=== PATIENT | female | born 1955 | race Caucasian/White ===

== ENCOUNTER → 2018-06-28 17:42 | Outpatient (CLI) | payer BC | END | disposition home or self-care (01) | LOC: D.MAMMO 09:30 | DX: N64.4 Mastodynia (principal) ==

== ENCOUNTER → 2018-07-23 08:07 | Outpatient (CLI) | payer BC | END | disposition home or self-care (01) | LOC: D.HCCARDIO 08:07 | DX: I20.9 Angina pectoris, unspecified (principal) ==

== ENCOUNTER 2018-08-06 11:15 | Inpatient (IN) | payer BC ==
[~2018-08-06] VITALS: Ht 149.9 cm; Wt 60.5 kg
--- NOTE | ~2018-08-06 | HEMODYNAMI ---
PATIENT:ANDERSON SÁNCHEZ MEDICAL RECORD: [id number] : 57 LOCATION:[facility] ADMISSION DATE: 08/06/18 Generatedon:08/06/201813:53 Patient name: ANDERSON SÁNCHEZ Patient #: [id number] SSN: : 1955 Date of study: 08/06/2018 Page: Of Hemodynamic Procedure Report Patient Data Patient Demographics Procedure consent was obtained First Name: ANDERSON Gender: Female Last Name: PRINCESS : 1955 [facility] Initial: NIKHIL Age: 62 year(s) Patient #: [id number] Race: Unknown Additional ID: [id number] Contact details Address: [address] [place] [address] State: [place] City: [place] Zip code: [address] Past Medical History Allergies: No known allergies Admission Admission Data Admission Date: 08/06/2018 Admission Time: 11:15 Height (in.): 61 BSA: 1.57 (m2) Height (cm.): 154.94 BMI: 24.56 (kg/m2) Weight (lbs.): 130 Weight (kg.): 58.97 Lab Results Lab Result Date: 08/06/2018 Lab Result Time: 0:00 Biochemistry Name Units Result Min Max BUN mg/dl 11 --(-*--)-- 7 18 Creatinine mg/dl 0.8 --(-*--)-- 0.6 1.3 CBC Name Units Result Min Max Hemoglobin g/dl 14.4 --(*---)-- 13.5 17.5 Procedure Procedure Types Cath Procedure Diagnostic Procedure LHC LHC w/Coronaries Procedure Description Procedure Date Procedure Date: 08/06/2018 Procedure Start Time: 13:41 Procedure End Time: 13:51 Procedure Staff Name Function Germán Gonzales MD Performing Physician Belkis Read RT Monitor Sonido Mason RT Scrub Esthela Keys RN Nurse Enoc Parisi RN Scientific Illustrator Procedure Data Cath Procedure Fluoroscopy Diagnostic fluoroscopy Total fluoroscopy Time: 2.3 time: 2.3 min min Diagnostic fluoroscopy Total fluoroscopy dose: 443 dose: 443 mGy mGy Contrast Material Contrast Material Type Amount (ml) Isovue 300 70 Entry Location Entry Primary Successful Side Size Upsize Upsize Entry Closure Gibbs ccessful Closure Location (Fr) 1 (Fr) 2 (Fr) Remarks Device Remarks Radial Right 6 Fr Mechanical artery Short Compression Estimated blood loss: 5 ml Diagnostic catheters Device Type Used For End Catheter Placement DIAGNOSTIC [place] 110cm 5 Procedure Fr catheter (012479) Procedure Complications No complications Procedure Medications Medication Administration Route Dosage 0.9% NaCl I.V. 100 ml/hr Oxygen etCO2 Nasal cannula 2 l/min Lidocaine 2% added to field 20 Heparin Flush Bag added to field 2 bags (1000units/500ml NS) Radial Cocktail added to field 1 syringe (Verapomil 2mg/Nitro 400mcg/Heparin 1500units) Versed I.V. 2 mg Fentanyl I.V. 50 mcg Versed I.V. 1 mg Versed I.V. 1 mg Fentanyl I.V. 50 mcg Hemodynamics Rest BSA: 1.57 (m2) HGB: 14.4 (g/dl) O2 Consumption: Estimated: 145.54 (ml/min) O2 Co nsumption indexed: Estimated:92.7 (ml/min/m) Heart Rate: 65 (bpm) Pressure Samples Time Site Value (mmHg) Purpose Heart Use Rate(bpm) 13:44 LV 149/-16,6 Snapshot 84 13:44 AO 142/65(98) Pullback 84 13:44 LV 156/-14,4 Pullback 84 Gradients Valve Time Site 1 Site 2 Mean SEP/DFP Peak To Heart Use (mmHg) (sec/min) Peak Rate (mmHg) (bpm) Aortic 13:44 LV AO 11 23 14 84 156/-14,4 142/65(98) Calculations Valve P-P Mean Valve Index Valve Source Name Gradient Area Flow (cm2) Aortic 14 11 14 11 Snapshots Pre Cath Intra NCS Post Cath Vital Signs Time Heart Resp SPO2 etCO2 NIBP (mmHg) Rhythm Pain Sedation Rate (ipm) (%) (mmHg) Status Level (bpm) 13:31:49 65 13 98 36.9 174/87(112) NSR 0 (11) 10(A) , No pain 13:36:56 68 13 96 42.9 153/79(108) NSR 0 (11) 10(A) , No pain 13:41:14 70 13 96 35.4 157/82(124) NSR 0 (11) 10(A) , No pain 13:45:30 81 14 97 39.9 142/77(107) NSR 0 (11) 10(A) , No pain 13:49:49 80 12 98 40.7 138/71(104) NSR 0 (11) 10(A) , No pain Medications Time Medication Route Dose Verified Delivered Reason Notes E ffectiveness by by 13:30:44 0.9% NaCl I.V. 100 Germán Esthela used for ml/hr Christian Keys spray dry operator 13:30:51 Oxygen etCO2 2 l/min Germán Esthela used for Nasal Christian Keys procedure cannula RN 13:30:57 Lidocaine 2% added 20ml Germán Germán for local to vial Christian Gonzales MD anesthetic field 13:31:02 Heparin Flush added 2 bags Germán Germán used for Bag to Christian Gonzales MD procedure (1000units/500ml field NS) 13:31:51 Radial Cocktail added 1 Germán Germán used for (Verapomil to syringe Christian Gonzales MD procedure 2mg/Nitro field 400mcg/Heparin 1500units) 13:38:47 Versed I.V. 2 mg Germán Esthela for Christian Keys sedation RN 13:38:53 Fentanyl I.V. 50 mcg Germán Esthela for Christian Keys sedation RN 13:43:22 Versed I.V. 1 mg Germán Esthela for Christian Keys sedation RN 13:47:15 Versed I.V. 1 mg Germán Esthela for Christian Keys sedation RN 13:47:19 Fentanyl I.V. 50 mcg Germán Esthela for Christian Keys sedation associate business analyst Log Time Note 13:20:02 Enoc Parisi RN sent for patient. Start room use. 13:20:03 Diagnostic Cath status Elective 13:20:04 Time tracking: Regular hours (M-F 7:00 - 5:00) 13:20:08 Plan of Care:Hemodynamics will remain stable., Cardiac rhythm will remain stable., Comfort level will be maintained., Respiratory function will remain adequate., Patient/ family verbilizes understanding of procedure., Procedure tolerated without complication., Recovers from procedure without complications.. 13:20:10 Signed procedure consent form obtained from patient. 13:20:20 H&P Date Dictated: 07/11/2018 Within 30 days and on chart., H&P Addendum completed by physician on day of procedure. (MUST COMPLETE FOR ALL OUTPATIENTS). 13:20:28 Patient allergic to No known allergies 13:20:45 Patient Height : 61 inches 13:20:50 Patient Weight : 130 lbs 13:22:47 Patient received from Pre/Post Procedure Room to CCL 1 Alert and oriented. Tansferred to table in Supine position. 13:22:48 Warm blankets applied, and gareth hugger turned on for patient comfort. 13:22:48 Correct patient and procedure confirmed by team. 13:22:49 ECG and BP/O2 sat monitors applied to patient. 13:30:35 Vital chart was started 13:30:44 0.9% NaCl 100 ml/hr I.V. was administered by Esthela Keys RN; used for procedure; 13:30:51 Oxygen 2 l/min etCO2 Nasal cannula was administered by Esthela Keys RN; used for procedure; 13:30:57 Lidocaine 2% 20ml vial added to field was administered by Germán Gonzales MD; for local anesthetic; 13:31:02 Heparin Flush Bag (1000units/500ml NS) 2 bags added to field was administered by Germán Gonzales MD; used for procedure; 13:31:51 Radial Cocktail (Verapomil 2mg/Nitro 400mcg/Heparin 1500units) 1 syringe added to field was administered by Germán Gonzales MD; used for procedure; 13:32:56 Baseline sample Acquired. 13:33:00 Rhythm: sinus rhythm 13:33:02 Full Disclosure recording started 13:33:03 Pre-procedure instructions explained to patient. 13:33:03 Pre-op teaching completed and patient verbalized understanding. 13:33:04 Family in patients room. 13:33:06 Patient NPO since Midnight. 13:33:10 Is patient on blood thinner?No 13:33:11 Patient diabetic? No. 13:33:13 Patient not . Patient is over age 55. 13:33:15 Previous problem with sedation/anesthesia? No ? 13:33:17 Snore? Yes 13:33:18 Sleep apnea? No 13:33:19 Deviated septum? No 13:33:20 Opens mouth fully? Yes 13:33:21 Sticks out tongue? Yes 13:33:23 Airway obstruction? No ? 13:33:26 Dentures? Yes tight 13:33:36 Modified Sudheer's test Ulnar < 7 seconds 13:33:39 Patient pain scale 0/10 ?. 13:33:43 IV patent on arrival in left hand with 0.9% NaCl at [facility]. 13:34:06 Lab Result : BUN 11 mg/dl 13:34:06 Lab Result : Hemoglobin 14.4 g/dl 13:34:06 Lab Result : Creatinine 0.8 mg/dl 13:34:09 Lab results completed and on chart. 13:34:13 Right Radial & Right Groin area was prepped with chlora-prep and draped in sterile fashion 13:34:14 Alarms reviewed by R. N. 13:34:14 Sharps counted by scrub and verified by R.N. 13:34:20 Use device set Radial Dx or PCI 13:34:21 ACIST Syringe (91577) opened to sterile field. 13:34:22 Bag Decanter (2002S) opened to sterile field. 13:34:22 ACIST Hand Control (51190) opened to sterile field. 13:34:23 ACIST Manifold (19570) opened to sterile field. 13:34:41 Medline Cath Pack ([id number]) opened to sterile field. 13:34:42 DIAGNOSTIC WIRE .035 260cm J wire (011804) opened to sterile field. 13:34:43 MBrace Wrist Support ([id number]) opened to sterile field. 13:34:44 SHEATH 6FR Slender (80-1124) opened to sterile field. 13:35:05 NEEDLE Cook 21G 4cm Radial (A18350) opened to sterile field. 13:37:59 --------ALL STOP TIME OUT------ 13:37:59 Final Timeout: patient, procedure, and site verified with staff and physician. All members of the team are in agreement. 13:38:02 Right Radial & Right Groin site verified by team. 13:38:06 Physical assessment completed. ASA score P 2 - A patient with mild systemic disease as per Germán Gonzales MD. 13:38:09 Sedation plan: IV Moderate Sedation Medication:Versed, Fentanyl 13:38:47 Versed 2 mg I.V. was administered by Esthela Keys RN; for sedation; 13:38:53 Fentanyl 50 mcg I.V. was administered by Esthela Keys RN; for sedation; 13:40:57 Zero performed for pressure channel P1 13:41:05 Procedure started. 13:41:19 Local anesthetic to right radial artery with Lidocaine 2% by Germán Gonzales MD.INITIAL ACCESS ONLY 13:42:19 A 6 Fr Short sheath was inserted into the Right Radial artery 13:42:54 A DIAGNOSTIC [place] 110cm 5 Fr catheter (329798) was advanced over the wire and used for Procedure. 13:43:22 Versed 1 mg I.V. was administered by Esthela Keys RN; for sedation; 13:43:47 LV gram done using PEREZ 13:43:50 Injector settings: Ml/sec: 5, Volume: 15, 13:44:07 LV hemodynamics recorded. 13:44:20 EF : 60 % 13:45:52 LCA angiography performed. 13:47:15 Versed 1 mg I.V. was administered by Esthela Keys RN; for sedation; 13:47:19 Fentanyl 50 mcg I.V. was administered by Esthela Keys RN; for sedation; 13:48:44 RCA angiography performed. 13:48:49 Catheter removed. 13:49:06 TR BAND Standard ([id number]) opened to sterile field. 13:49:43 Procedure ended.(Physican Out) 13:49:52 Fluoroscopy time 02.30 minutes. 13:49:58 Fluoroscopy dose: 443 mGy 13:49:58 Flurop Dose total: 443 13:50:02 Contrast amount:Isovue 300 70ml. 13:50:04 Sharps counted by scrub and verified by R.N. 13:50:17 Sheath removed intact; hemostasis achieved with Mechanical Compression to the Right Radial artery. 13:50:24 TR band inflated with 12cc of air. 13:50:32 Post-procedure physical assessment completed. ASA score P 2 - A patient with mild systemic disease as per Germán Gonzales MD. 13:50:37 Post procedure rhythm: sinus rhythm 13:50:39 Estimated blood loss: 5 ml 13:50:41 Post procedure instruction explained to patient.Patient verbalizes understanding. 13:50:44 Patient needs reinforcement of post procedure teaching. 13:51:36 Procedure and supply charges have been captured, reviewed, submitted and are correct. 13:51:38 Procedure Complication : No complications 13:51:39 Vital chart was stopped 13:51:40 See physician's report for complete and final results. 13:51:41 Report given to Pre/Post Procedure Room. 13:51:43 Patient transfered to Pre/Post Procedure Room with Bed. 13:51:45 Procedure ended. 13:51:45 Full Disclosure recording stopped 13:51:50 End room use (Document Last) Device Usage Item Name Manufacture Quantity Catalog Hospital Part Current Minimal Lot# / Number Charge Number Stock Stock Serial# Code ACIST Acist 1 74346 332824 114646 211674 20 Syringe Medical (28620) Systems Inc Bag Microtek 1 2001S 786430 90428 300365 5 Decanter Medical Inc. () ACIST Hand Acist 1 68482 393071 178216 350380 5 Control Medical (01270) Systems Inc ACIST Acist 1 71431 391584 378416 782955 5 Manifold Medical (32661) Systems Inc Medline Medline 1 [id number] 014074 32901 979119 5 Cath Pack ([id number]) DIAGNOSTIC [place] 1 199283 609474 533775 000039 30 WIRE .035 260cm J wire (015819) MBrace Advanced 1 140-0250-00 975764 68453 154555 5 Wrist Vascular Support Dynamics ([id number]) SHEATH 6FR Terumo 1 [id number] 617355 135149 354147 5 Slender (80-1060) NEEDLE Camrivox Medical 1 F80176 560692 879826 112110 5 21G 4cm Radial (M82158) DIAGNOSTIC Terumo 1 40-0003 443955 180662 870962 5 [place] 110cm 5 Fr catheter (930345) TR BAND Terumo 1 [id number] 674725 949087 839269 40 Standard ([id number]) Signature Audit [place] Stage Time Signature Unsigned Intra-Procedure 08/06/2018 Belkis Read 1:53:08 PM RT(R) Signatures Monitor : Belkis Read Signature : RT Date : Time : [place] [id number] [place] [address]
--- NOTE | ~2018-08-06 | OP ---
PATIENT NAME: ANDERSON SÁNCHEZ MEDICAL RECORD: [id number] :57 [facility] AD[facility]ION DATE:08/07/18 SURGEON: CARLTON MCCORD MD DATE OF OPERATION: 08/08/2018 SURGEON: Carlton Mccord MD ASSISTANTS: AMANDA Sharif MD and Basil Danielle OPERATION PERFORMED: Coronary artery bypass graft times 4 (left internal mammary artery to LAD, reverse saphenous vein graft from aorta to first diagonal, aorta to obtuse marginal, aorta to posterior descending artery). PREOPERATIVE DIAGNOSIS: Coronary artery disease with unstable angina. POSTOPERATIVE DIAGNOSIS: Coronary artery disease with unstable angina. ANESTHESIA: General endotracheal anesthesia. ESTIMATED BLOOD LOSS: Total cardiopulmonary bypass with Cell Saver retransfusion. SPECIMENS: Left internal mammary lymph node for permanent specimen. COMPLICATIONS: None. CONDITION: Stable. DISPOSITION: CV ICU. OPERATIVE FINDINGS: 1. Good quality greater saphenous vein harvest in the right leg with bridging incisions. 2. Good quality left internal mammary artery. The LAD was a 1.5 mm vessel. 3. The first diagonal 1.5 mm, the smallest section of saphenous vein was used for this graft. 4. The obtuse marginal was a 1.5 mm vessel. 5. The posterior descending artery, 2.5 mm vessel with severe disease. 6. Transesophageal echocardiography normal with the exception of a trace aortic insufficiency, not clinically significant during cardioplegia, normal-sized heart with good contractility and moderate left ventricular hypertrophy. OPERATIVE INDICATION: Coronary artery disease with unstable angina. DESCRIPTION OF PROCEDURE: The patient was brought to the operating suite. General anesthesia obtained. The patient was prepped and draped. Greater saphenous vein harvested from the right lower extremity utilizing bridging incisions. Side branches were divided with clips. The vessels ligated proximally and distally and removed. Side branches were then tied. The leg was later irrigated and closed with subcutaneous and skin clips and the dressing was applied. Median sternotomy incision was made. The subcutaneous tissue divided with electrocautery. The sternum was divided with a saw. The left hemisternum was elevated. Left pleural cavity was entered. Left internal mammary artery and OPERATIVE REPORT [id number] ANDERSON SÁNCHEZ vein were taken down as a pedicle graft. Sternal retractor was placed. Pericardium was opened. Heparin was given. Aorta was cannulated. Dual-stage venous cannula was inserted. The internal mammary was clipped distally and made ready for anastomosis. The patient was placed on cardiopulmonary bypass after activated clotting time was appropriately elevated. Sites for distal anastomoses were selected. Antegrade cardioplegia needle was inserted. The patient's temperature was allowed to drift to 34 degrees. Crossclamp was placed. Cardioplegia was given antegrade and this repeated at 15-min intervals including down the completed vein grafts. Distal anastomosis was performed in a standard technique. Proximal anastomosis with single cross-clamp technique. Aortic root de-aired by removing the crossclamp and then tying the proximal anastomoses, deairing the vein grafts and restoring the flow. Proximal and distal anastomotic sites inspected for bleeding. A single 6-0 was in the proximal anastomotic sites. The patient defibrillated once and resumed a spontaneous rhythm. Fully rewarmed, weaned from cardiopulmonary bypass stable. The patient was decannulated. Aortic cannulation site was oversewn with a nonpledgeted Prolene suture. Protamine was given. Thorough irrigation was undertaken. All grafts lay appropriately. The hemostasis was ensured. Drains were placed in the mediastinum and both pleural cavities. Ventricular pacing wires were placed. The pericardial fat was loosely reapproximated in the midline. Left chest was evacuated and irrigated. The internal mammary harvest site was inspected for bleeding. Sternum was closed with wires. The patient was stable. Chest closed. Fascia was closed. Subcutaneous tissue was closed. Skin was closed. Dermabond was placed. The needle and sponge counts were reported as correct. The patient was taken to ICU in stable condition. TRANSINT:[id number] Voice Confirmation ID: [id number] DOCUMENT ID: [id number] CARLTON MCCORD MD at 0926 CC: LESLEY CHAVES M.D. [id number] DICTATION DATE: 08/08/18 1706 BOOTH CLEANER: 08/08/18 8955 ADM IN [facility] [address] [place] [address]
--- NOTE | ~2018-08-06 | MORECARE ---
CASE MANAGEMENT DISCHARGE SUMMARY PATIENT: ANDERSON SÁNCHEZ NAN UNIT: [id number] ADM DATE: 08/07/18 AGE: 62 : 57 SEX: F ROOM/BED: D[facility] AUTHOR: PAM,DOC PHYSICIAN: REFERRING PHYSICIAN: LESLEY CHAVES M.D. DATE OF SERVICE: 08/16/18 Discharge Plan Patient Name: ANDERSON SÁNCHEZ Facility: [facility]:[place] : 1955 Planned Disposition: Home Anticipated Discharge Date: Discharge Date: 08/13/2018 Expected LOS: Initial Reviewer: [email or web address] Initial Review Date: 08/09/2018 Generated: 08/16/18 12:22 pm Comments DCP- Discharge Planning Updated by [email or web address]: Ana Bethea on 08/09/18 11:[address] Patient Name: ANDERSON SÁNCHEZ Admission Status: Elective Accout number: [id number] Admission Date: 08-07-2018 : 1955 Admission Diagnosis: Attending: LESLEY CHAVES Current LOS: 2 Anticipated DC Date: Planned Disposition: Home Primary Insurance: ReClaims [facility] Discharge Planning Comments:CM met with patient at bedside after obtaining verbal consent. Patient states she plans on returning home after discharge with her . Patient states she will have family transport her home via private vehicle. Patient denies any discharge needs at this time. CM will continue to follow and assist as needed for discharge planning / needs. Photo Lab Specialist: Ana Bethea DCPIA - Discharge Planning Initial Assessment Updated by [email or web address]: Ana Bethea on 08/09/18 12:46 pm * Is the patient Alert and Oriented? Yes * How many steps to enter\exit or inside your home? 5 and ramp * PCP Katiana * Pharmacy [facility] * Preadmission Environment Home with Family * ADLs Independent * Equipment None * List name and contact numbers for known caregivers / representatives who currently or will assist patient after discharge: Larissa Guillen * Verbal permission to speak to the caregivers and representatives has been obtained from the patient. Yes * Community resources currently utilized None * Additional services required to return to the preadmission environment? No * Can the patient safely return to the preadmission environment? Yes * Has this patient been hospitalized within the prior 30 days at any hospital? No Last DP export: 08/09/18 11:49 Patient Name: ANDERSON SÁNCHEZ Page 48325 at 1122 All edits/amendments must be made on the electronic document DICTATION DATE: 08/16/181121 CRAP GAME BOX PERSON: NADEEM 08/16/181121 RPT#: [id number] DC DATE:08/13/18 STATUS: DIS IN [facility] [address] [place] [address] END OF REPORT
--- NOTE | ~2018-08-06 | TEE ---
PATIENT:ANDERSON SÁNCHEZ MEDICAL RECORD: [id number] LOCATION:[place] [address] AGE OF PATIENT: 62 ADMISSION DATE: 08/07/18 SEX: F REFERRING PHYSICIAN: INTERPRETING PHYSICIAN: JOSE JAMES MD TRANSESOPHAGEAL ECHOCARDIOGRAM Date: 08/08/18 MARY CHARGE Y INDICATIONS: CABG PREMEDICATIONS: PATIENT'S RESPONSE PROCEDURE DOPPLER MEASUREMENTS: LVIT LA PA RA LVOT RVOT Asc. Ao AV Gradient Peak AV Mean AV Area MV Gradient Peak MV Mean MV Area INTERPRETATION: LVd: 2.9 cm LVs: 1.5 cm Doppler: 2-D: COLOR FLOW DOPPLER NORMAL SALINE STUDY: MISCELLANOUS: DIAGNOSIS: PLAN: Awake Overnight Counselor:Mae Gonzales Hamper Maker: Mumtaz DISLA COMMENTS: DATE OF SERVICE: 08/08/2018 PROCEDURE: Transesophageal echo evaluation of valvular structures during bypass surgery. FINDINGS: 1. Left ventricular chamber size is within normal limits. Left ventricular systolic function is normal. Overall ejection fraction is estimated at 60%. 2. Left atrium, right atrium, and right ventricle chamber sizes are within TRANSESOPHAGEAL ECHOCARDIOGRAM REPORT [id number] ANDERSON SÁNCHEZ normal limit. 3. Valvular structures have normal structure and motion. 4. Doppler interrogation reveals mild mitral regurgitation, mild aortic insufficiency, and mild tricuspid regurgitation. No other valvular insufficiency or stenosis. 5. No evidence of pericardial effusion or left ventricular thrombus. TRANSINT:[id number] Voice Confirmation ID: [id number] DOCUMENT ID: [id number] at 1456 CC: [id number] DICTATION DATE: 08/08/18 1125 CASH SALES AUDIT CLERK: 08/08/18 2130 DIS IN 08/13/18 [facility] [address] [place] [id number]
--- NOTE | ~2018-08-06 | MORECARE ---
CASE MANAGEMENT DISCHARGE SUMMARY PATIENT: ANDERSON SÁNCHEZ NAN UNIT: [id number] ADM DATE: 08/07/18 AGE: 62 : 57 SEX: F ROOM/BED: D.[facility] AUTHOR: PAM,DOC PHYSICIAN: REFERRING PHYSICIAN: LESLEY CHAVES M.D. DATE OF SERVICE: 08/09/18 Discharge Plan Patient Name: ANDERSON SÁNCHEZ Facility: [facility]:[place] : 1955 Planned Disposition: Home Anticipated Discharge Date: Discharge Date: Expected LOS: Initial Reviewer: [email or web address] Initial Review Date: 08/09/2018 Generated: 08/09/18 1:49 pm Comments DCP- Discharge Planning Updated by [email or web address]: Ana Bethea on 08/09/18 11:[address] Patient Name: ANDERSON SÁNCHEZ Admission Status: Elective Accout number: [id number] Admission Date: 08-07-2018 : 1955 Admission Diagnosis: Attending: LESLEY CHAVES Current LOS: 2 Anticipated DC Date: Planned Disposition: Home Primary Insurance: [employer] Discharge Planning Comments:CM met with patient at bedside after obtaining verbal consent. Patient states she plans on returning home after discharge with her . Patient states she will have family transport her home via private vehicle. Patient denies any discharge needs at this time. CM will continue to follow and assist as needed for discharge planning / needs. Ignition Specialist: Ana Bethea DCPIA - Discharge Planning Initial Assessment Updated by [email or web address]: Ana Bethea on 08/09/18 12:46 pm * Is the patient Alert and Oriented? Yes * How many steps to enter\exit or inside your home? 5 and ramp * PCP Katiana * Pharmacy [facility] * Preadmission Environment Home with Family * ADLs Independent * Equipment None * List name and contact numbers for known caregivers / representatives who currently or will assist patient after discharge: Larissa Guillen * Verbal permission to speak to the caregivers and representatives has been obtained from the patient. Yes * Community resources currently utilized None * Additional services required to return to the preadmission environment? No * Can the patient safely return to the preadmission environment? Yes * Has this patient been hospitalized within the prior 30 days at any hospital? No Patient Name: ANDERSON SÁNCHEZ Page 39119 at 1249 All edits/amendments must be made on the electronic document DICTATION DATE: 08/09/181248 HI LO DRIVER: NADEEM 08/09/18 1249 RPT#: [id number] DC DATE: STATUS: ADM IN [facility] [address] [place] [address] END OF REPORT
[2018-08-06] MEDS ORDERED: DETROL2 MG PO (11:35)
[2018-08-06 11:36] VITALS: BP 168/92; BMI 26.7
[2018-08-06 12:07] LABS: BASOPHILS 0.3 % (0-2); EOSINOPHILS 0.3 % (0-7); HEMATOCRIT 42.5 % (36.0-48.0); HEMOGLOBIN 14.4 g/dL (12-16); IMMATURE GRANULOCYTES 0.2 % (0-5); LYMPHOCYTES 33.9 % (15-50); MCH 30.6 pg (26.0-34.0); MCHC 33.9 g/dL (31.0-37.0); MCV 90.2 fL (80.0-100.0); MEAN PLATELET VOLUME 10.4 fL (7.4-10.4); MONOCYTES 6.7 % (2-11); NEUTROPHILS 58.6 % (40-80); PLATELET COUNT 173 10x3/uL (130-400); RBC 4.71 10x6/uL (4.00-5.40); RDW 13.6 % (11.5-14.5); WBC 6.1 10x3/uL (4.8-10.8)
[2018-08-06 12:16] LABS: CALC OSMOLALITY 283 mosm/kg (275-300); CALCIUM 8.7 mg/dL (8.5-10.1); CARBON DIOXIDE 27.1 mmol/L (21.0-32.0); CHLORIDE - SERUM 105 mmol/L (98-107); CREATININE - SERUM 0.8 mg/dL (0.6-1.3); GLUCOSE 92 mg/dL (74-106); POTASSIUM - SERUM 3.4 mmol/L (3.5-5.1); SODIUM 143 mmol/L (136-145); UREA NITROGEN 11 mg/dL (7-18); eGFR NON AFRICAN AMERICAN 77 mL/min (90-120)
[2018-08-06 17:53] VITALS: BP 150/78
[2018-08-06 17:56] VITALS: BP 153/78; BMI 25.5
[2018-08-06 20:00] VITALS: BP 142/71
[2018-08-07] VITALS (7 sets, daily range): BP systolic 132–168; BP diastolic 68–88
[2018-08-07 09:35] LABS: HEMATOCRIT 41.3 % (36.0-48.0); MCH 30.5 pg (26.0-34.0); MCHC 33.9 g/dL (31.0-37.0); MEAN PLATELET VOLUME 10.1 fL (7.4-10.4); RBC 4.59 10x6/uL (4.00-5.40); RDW 13.6 % (11.5-14.5); WBC 5.1 10x3/uL (4.8-10.8)
[2018-08-07 09:54] LABS: APTT 25.5 SECONDS (22.8-39.4); INR 0.95 (0.85-1.17); PROTIME 12.2 SECONDS (11.6-15.0)
[2018-08-07 11:09] LABS: BASOPHILS 0.4 % (0-2); EOSINOPHILS 1.4 % (0-7); HEMATOCRIT 41.6 % (36.0-48.0); IMMATURE GRANULOCYTES 0.2 % (0-5); LYMPHOCYTES 28.9 % (15-50); MCH 30.3 pg (26.0-34.0); MCHC 33.7 g/dL (31.0-37.0); MEAN PLATELET VOLUME 10.5 fL (7.4-10.4); MONOCYTES 6.7 % (2-11); NEUTROPHILS 62.4 % (40-80); PLATELET COUNT 155 10x3/uL (130-400); RBC 4.62 10x6/uL (4.00-5.40); RDW 13.7 % (11.5-14.5); WBC 5.1 10x3/uL (4.8-10.8)
[2018-08-07 11:32] LABS: ALBUMIN 3.2 g/dL (3.4-5.0); ALKALINE PHOSPHATASE 99 U/L (46-116); ALT (SGPT) 12 U/L (10-68); CALC OSMOLALITY 282 mosm/kg (275-300); CALCIUM 8.2 mg/dL (8.5-10.1); CARBON DIOXIDE 27.6 mmol/L (21.0-32.0); CHLORIDE - SERUM 105 mmol/L (98-107); CHOLESTEROL, TOTAL 221 mg/dL (0-200); CREATININE - SERUM 0.7 mg/dL (0.6-1.3); GLUCOSE 90 mg/dL (74-106); PHOSPHOROUS 2.7 mg/dL (2.5-4.9); POTASSIUM - SERUM 3.5 mmol/L (3.5-5.1); PROTEIN - SERUM 6.7 g/dL (6.4-8.2); SODIUM 142 mmol/L (136-145); T4 THYROXIN - FREE 1.12 ng/dL (0.76-1.46); THYROID STIMULATING HORMONE 2.09 uIU/mL (0.36-3.74); UREA NITROGEN 13 mg/dL (7-18); URIC ACID 4.1 mg/dL (2.6-7.2); eGFR NON AFRICAN AMERICAN 90 mL/min (90-120)
[2018-08-07 14:34] LABS: APPEARANCE HAZY (CLEAR); BACTERIA FEW /hpf (NONE SEEN); BILIRUBIN NEGATIVE (NEGATIVE); COLOR YELLOW (YELLOW); EPITHELIAL CELLS 0-5 /hpf (0-5); GLUCOSE NEGATIVE (NEGATIVE); KETONE MODERATE mg/dL (NEGATIVE); NITRITE NEGATIVE (NEGATIVE); PROTEIN NEGATIVE (NEGATIVE); RED CELLS - URINE OCC /hpf (0-5); UROBILINOGEN NORMAL (NORMAL); WHITE CELLS - URINE 0-5 /hpf (0-5)
[2018-08-08] VITALS (52 sets, daily range): BP systolic 110–173; BP diastolic 52–693; Ht 149.9 cm; Wt 60.5 kg
[2018-08-08 06:00] LABS: HEMATOCRIT 39.9 % (36.0-48.0); HEMOGLOBIN 13.3 g/dL (12-16); MCH 30.1 pg (26.0-34.0); MCHC 33.3 g/dL (31.0-37.0); MCV 90.3 fL (80.0-100.0); MEAN PLATELET VOLUME 10.6 fL (7.4-10.4); RBC 4.42 10x6/uL (4.00-5.40); RDW 13.4 % (11.5-14.5)
[2018-08-09] VITALS (54 sets, daily range): BP systolic 98–140; BP diastolic 50–67
[2018-08-09 00:53] LABS: HEMATOCRIT 32.7 % (36.0-48.0); MCH 30.1 pg (26.0-34.0); MCHC 33.6 g/dL (31.0-37.0); MCV 89.3 fL (80.0-100.0); MEAN PLATELET VOLUME 10.7 fL (7.4-10.4); RBC 3.66 10x6/uL (4.00-5.40); RDW 13.8 % (11.5-14.5)
[2018-08-09 00:54] LABS: WBC 14.5 10x3/uL (4.8-10.8)
[2018-08-09 06:18] LABS: HEMATOCRIT 32.1 % (36.0-48.0); HEMOGLOBIN 10.7 g/dL (12-16); MCH 29.6 pg (26.0-34.0); MCHC 33.3 g/dL (31.0-37.0); MCV 88.9 fL (80.0-100.0); MEAN PLATELET VOLUME 10.8 fL (7.4-10.4); RBC 3.61 10x6/uL (4.00-5.40); WBC 12.7 10x3/uL (4.8-10.8)
[2018-08-09 06:37] LABS: ALBUMIN 2.6 g/dL (3.4-5.0); ALKALINE PHOSPHATASE 49 U/L (46-116); ALT (SGPT) 10 U/L (10-68); CALCIUM 7.5 mg/dL (8.5-10.1); CARBON DIOXIDE 23.3 mmol/L (21.0-32.0); CHLORIDE - SERUM 105 mmol/L (98-107); CREATININE - SERUM 0.7 mg/dL (0.6-1.3); POTASSIUM - SERUM 3.8 mmol/L (3.5-5.1); PROTEIN - SERUM 5.2 g/dL (6.4-8.2); SODIUM 140 mmol/L (136-145); eGFR NON AFRICAN AMERICAN 90 mL/min (90-120)
[2018-08-09 06:39] LABS: CALC OSMOLALITY 284 mosm/kg (275-300); GLUCOSE 167 mg/dL (74-106); UREA NITROGEN 17 mg/dL (7-18)
[2018-08-10] VITALS (24 sets, daily range): BP systolic 93–129; BP diastolic 46–93
[2018-08-10 02:44] LABS: HEMATOCRIT 30.3 % (36.0-48.0); HEMOGLOBIN 10.1 g/dL (12-16); MCH 30.1 pg (26.0-34.0); MCHC 33.3 g/dL (31.0-37.0); MCV 90.4 fL (80.0-100.0); MEAN PLATELET VOLUME 10.9 fL (7.4-10.4); RBC 3.35 10x6/uL (4.00-5.40); RDW 14.2 % (11.5-14.5); WBC 10.8 10x3/uL (4.8-10.8)
[2018-08-10 06:26] LABS: HEMATOCRIT 29.8 % (36.0-48.0); HEMOGLOBIN 9.9 g/dL (12-16); MCH 30.1 pg (26.0-34.0); MCHC 33.2 g/dL (31.0-37.0); MCV 90.6 fL (80.0-100.0); MEAN PLATELET VOLUME 11.1 fL (7.4-10.4); PLATELET COUNT 98 10x3/uL (130-400); RBC 3.29 10x6/uL (4.00-5.40); RDW 14.3 % (11.5-14.5); WBC 10.8 10x3/uL (4.8-10.8)
[2018-08-10 06:40] LABS: ALBUMIN 2.4 g/dL (3.4-5.0); ALKALINE PHOSPHATASE 55 U/L (46-116); ALT (SGPT) 15 U/L (10-68); BILIRUBIN - TOTAL 0.46 mg/dL (0.2-1.3); CALC OSMOLALITY 279 mosm/kg (275-300); CALCIUM 8.1 mg/dL (8.5-10.1); CARBON DIOXIDE 27.7 mmol/L (21.0-32.0); CHLORIDE - SERUM 105 mmol/L (98-107); CREATININE - SERUM 0.7 mg/dL (0.6-1.3); GLUCOSE 113 mg/dL (74-106); PROTEIN - SERUM 5.5 g/dL (6.4-8.2); SODIUM 139 mmol/L (136-145); UREA NITROGEN 16 mg/dL (7-18); eGFR NON AFRICAN AMERICAN 90 mL/min (90-120)
[2018-08-10 06:47] LABS: PLATELET ESTIMATE NORMAL
[2018-08-11] VITALS (24 sets, daily range): BP systolic 90–143; BP diastolic 48–82
[2018-08-11 01:14] LABS: HEMATOCRIT 28.4 % (36.0-48.0); HEMOGLOBIN 9.4 g/dL (12-16); MCH 30.1 pg (26.0-34.0); MCHC 33.1 g/dL (31.0-37.0); MEAN PLATELET VOLUME 10.9 fL (7.4-10.4); RBC 3.12 10x6/uL (4.00-5.40); RDW 14.4 % (11.5-14.5); WBC 9.2 10x3/uL (4.8-10.8)
[2018-08-11 06:18] LABS: HEMATOCRIT 27.5 % (36.0-48.0); MCH 29.9 pg (26.0-34.0); MCHC 32.7 g/dL (31.0-37.0); MCV 91.4 fL (80.0-100.0); RBC 3.01 10x6/uL (4.00-5.40); RDW 14.6 % (11.5-14.5); WBC 8.1 10x3/uL (4.8-10.8)
[2018-08-11 06:56] LABS: ALBUMIN 2.1 g/dL (3.4-5.0); ALKALINE PHOSPHATASE 61 U/L (46-116); ALT (SGPT) 15 U/L (10-68); BILIRUBIN - TOTAL 0.38 mg/dL (0.2-1.3); CALC OSMOLALITY 274 mosm/kg (275-300); CALCIUM 7.9 mg/dL (8.5-10.1); CARBON DIOXIDE 28.7 mmol/L (21.0-32.0); CHLORIDE - SERUM 103 mmol/L (98-107); CREATININE - SERUM 0.6 mg/dL (0.6-1.3); GLUCOSE 104 mg/dL (74-106); POTASSIUM - SERUM 3.7 mmol/L (3.5-5.1); PROTEIN - SERUM 5.6 g/dL (6.4-8.2); SODIUM 137 mmol/L (136-145); UREA NITROGEN 15 mg/dL (7-18); eGFR NON AFRICAN AMERICAN > 90 mL/min (90-120)
[2018-08-12] VITALS (24 sets, daily range): BP systolic 111–147; BP diastolic 54–90
[2018-08-12 01:13] LABS: MCH 29.3 pg (26.0-34.0); MCHC 32.1 g/dL (31.0-37.0); MCV 91.2 fL (80.0-100.0); MEAN PLATELET VOLUME 10.4 fL (7.4-10.4); RBC 3.07 10x6/uL (4.00-5.40); RDW 14.4 % (11.5-14.5); WBC 6.8 10x3/uL (4.8-10.8)
[2018-08-12 05:56] LABS: HEMATOCRIT 28.7 % (36.0-48.0); HEMOGLOBIN 9.3 g/dL (12-16); MCH 29.7 pg (26.0-34.0); MCHC 32.4 g/dL (31.0-37.0); MCV 91.7 fL (80.0-100.0); MEAN PLATELET VOLUME 10.3 fL (7.4-10.4); RBC 3.13 10x6/uL (4.00-5.40); RDW 14.4 % (11.5-14.5); WBC 6.8 10x3/uL (4.8-10.8)
[2018-08-12 06:28] LABS: ALBUMIN 2.1 g/dL (3.4-5.0); ALKALINE PHOSPHATASE 59 U/L (46-116); BILIRUBIN - TOTAL 0.39 mg/dL (0.2-1.3); CALC OSMOLALITY 281 mosm/kg (275-300); CALCIUM 7.9 mg/dL (8.5-10.1); CARBON DIOXIDE 28.5 mmol/L (21.0-32.0); CHLORIDE - SERUM 105 mmol/L (98-107); CREATININE - SERUM 0.7 mg/dL (0.6-1.3); GLUCOSE 99 mg/dL (74-106); POTASSIUM - SERUM 3.7 mmol/L (3.5-5.1); PROTEIN - SERUM 5.6 g/dL (6.4-8.2); SODIUM 141 mmol/L (136-145); UREA NITROGEN 15 mg/dL (7-18); eGFR NON AFRICAN AMERICAN 90 mL/min (90-120)
[2018-08-12 06:30] LABS: ALT (SGPT) 19 U/L (10-68)
[2018-08-13] VITALS (11 sets, daily range): BP systolic 120–140; BP diastolic 51–88
[2018-08-13 06:01] LABS: HEMATOCRIT 28.7 % (36.0-48.0); HEMOGLOBIN 9.2 g/dL (12-16); MCH 29.2 pg (26.0-34.0); MCHC 32.1 g/dL (31.0-37.0); MCV 91.1 fL (80.0-100.0); RBC 3.15 10x6/uL (4.00-5.40); WBC 5.9 10x3/uL (4.8-10.8)
[2018-08-13 06:27] LABS: ALBUMIN 2.1 g/dL (3.4-5.0); ALKALINE PHOSPHATASE 62 U/L (46-116); ALT (SGPT) 15 U/L (10-68); BILIRUBIN - TOTAL 0.32 mg/dL (0.2-1.3); CALC OSMOLALITY 286 mosm/kg (275-300); CALCIUM 8.2 mg/dL (8.5-10.1); CHLORIDE - SERUM 107 mmol/L (98-107); CREATININE - SERUM 0.6 mg/dL (0.6-1.3); GLUCOSE 109 mg/dL (74-106); POTASSIUM - SERUM 3.5 mmol/L (3.5-5.1); PROTEIN - SERUM 5.6 g/dL (6.4-8.2); SODIUM 143 mmol/L (136-145); UREA NITROGEN 16 mg/dL (7-18); eGFR NON AFRICAN AMERICAN > 90 mL/min (90-120)
[2018-08-13] MEDS ORDERED: LOPRESSOR25 MG PO (12:28)
[2018-08-13] MEDS ORDERED: ASPIRIN EC81 M1 PO (12:28)
[2018-08-13] MEDS ORDERED: AMIODARONE HCL200 MG PO (12:28)
[2018-08-13] MEDS ORDERED: Percocet-10 PO (12:28)
== END 2018-08-13 12:30 | disposition home or self-care (01) | DRG 234 ==
LOC: D.M2 11:15 → D.CATH 11:15 → D.M2 17:28 → D.CATH 08-07 09:54 → D.M2 08-07 09:58 → D.CVICU 08-07 09:58
PROVIDERS: Internal Medicine Cardiovascular Disease; Thoracic Surgery (Cardiothoracic Vascular Surgery)
PROC: B2151ZZ Fluoroscopy of Left Heart using Low Osmolar Contrast (ICD-10-PCS; 2018-08-06)
PROC: 4A023N7 Measurement of Cardiac Sampling and Pressure, Left Heart, Percutaneous Approach (ICD-10-PCS; 2018-08-06)
PROC: B2111ZZ Fluoroscopy of Multiple Coronary Arteries using Low Osmolar Contrast (ICD-10-PCS; principal; 2018-08-06 13:30)
PROC: 02100Z9 Bypass Coronary Artery, One Artery from Left Internal Mammary, Open Approach (ICD-10-PCS; 2018-08-08)
PROC: 021209W Bypass Coronary Artery, Three Arteries from Aorta with Autologous Venous Tissue, Open Approach (ICD-10-PCS; 2018-08-08)
PROC: 06BP0ZZ Excision of Right Saphenous Vein, Open Approach (ICD-10-PCS; 2018-08-08)
PROC: 5A1221Z Performance of Cardiac Output, Continuous (ICD-10-PCS; 2018-08-08)
PROC: B24BZZ4 Ultrasonography of Heart with Aorta, Transesophageal (ICD-10-PCS; 2018-08-08)
DX: I25.110 Atherosclerotic heart disease of native coronary artery with unstable angina pectoris (principal); R94.30 Abnormal result of cardiovascular function study, unspecified; F17.200 Nicotine dependence, unspecified, uncomplicated; I10 Essential (primary) hypertension; E78.5 Hyperlipidemia, unspecified; K21.9 Gastro-esophageal reflux disease without esophagitis; R91.1 Solitary pulmonary nodule

== ENCOUNTER → 2018-09-05 11:54 | Outpatient (CLI) | payer BC ==
[2018-08-08 10:13] VITALS: BMI 25.4
[~2018-09-05 11:54] MED LIST: AMIODARONE HCL200 MG PO; ASPIRIN EC81 M1 PO; DETROL2 MG PO; LOPRESSOR25 MG PO; Percocet-10 PO
[2018-09-05 12:30] LABS: HEMATOCRIT 39.2 % (36.0-48.0); MCH 29.7 pg (26.0-34.0); MCHC 33.2 g/dL (31.0-37.0); MCV 89.7 fL (80.0-100.0); RBC 4.37 10x6/uL (4.00-5.40); RDW 14.7 % (11.5-14.5)
[2018-09-05 12:52] LABS: ALBUMIN 3.6 g/dL (3.4-5.0); ANION GAP 12.8 mmol/L (8-16); BILIRUBIN - TOTAL 0.41 mg/dL (0.2-1.3); CARBON DIOXIDE 28.8 mmol/L (21.0-32.0); CREATININE - SERUM 1.1 mg/dL (0.6-1.3); POTASSIUM - SERUM 3.6 mmol/L (3.5-5.1); PROTEIN - SERUM 7.5 g/dL (6.4-8.2)
== END | disposition home or self-care (01) ==
LOC: D.LAB 11:54
PROVIDERS: Thoracic Surgery (Cardiothoracic Vascular Surgery)
DX: J90 Pleural effusion, not elsewhere classified (principal); D64.9 Anemia, unspecified; I49.9 Cardiac arrhythmia, unspecified

== ENCOUNTER → 2019-10-29 08:00 | Outpatient (CLI) | payer BC ==
[2018-08-08 10:13] VITALS: BMI 25.4
== END | disposition home or self-care (01) ==
LOC: D.MAMMO 08:00
PROVIDERS: ATTEND Family Medicine
DX: R92.8 Other abnormal and inconclusive findings on diagnostic imaging of breast (principal)

== ENCOUNTER → 2019-11-07 17:24 | Outpatient (CLI) | payer BC ==
[2018-08-08 10:13] VITALS: BMI 25.4
== END | disposition home or self-care (01) ==
LOC: D.MAMMO 08:00
PROVIDERS: ATTEND Family Medicine
DX: N63.10 Unspecified lump in the right breast, unspecified quadrant (principal)

== ENCOUNTER → 2019-12-24 12:43 | Outpatient (CLI) | payer BC ==
[2018-08-08 10:13] VITALS: BMI 25.4
== END | disposition home or self-care (01) ==
LOC: D.HCCECHO 12:43
PROVIDERS: ATTEND Internal Medicine Cardiovascular Disease
DX: I25.10 Atherosclerotic heart disease of native coronary artery without angina pectoris (principal); Z95.1 Presence of aortocoronary bypass graft